=== PATIENT | female | born 1960 | race Two or more races ===

== ENCOUNTER 2024-12-19 22:07 | Emergency (ER) | payer BC, OTHER ==
[~2024-12-19] VITALS: Ht 162.6 cm; Wt 67.2 kg
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
[2024-12-19 23:11] VITALS: TEMP 98.1; O2SAT 72
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
[2024-12-20 00:58] VITALS: BP 165/76; PULSE 65; RESP 17
== END 2024-12-20 00:59 | disposition home or self-care (01) ==
LOC: ER 22:07
DX: S13.4XXA Sprain of ligaments of cervical spine, initial encounter (principal); S09.90XA Unspecified injury of head, initial encounter; Z88.8 Allergy status to other drugs, medicaments and biological substances; V89.2XXA Person injured in unspecified motor-vehicle accident, traffic, initial encounter; Y93.89 Activity, other specified; Y92.89 Other specified places as the place of occurrence of the external cause; Y99.8 Other external cause status
CPT/HCPCS: 70450; 72125